=== PATIENT | male | born 1965 | race Caucasian/White ===

== ENCOUNTER → 2017-03-13 | Outpatient (CLI) | payer BC ==
[2017-03-13 10:59] LABS: URINE AMPHETAMINES < 1000 (1000ng/ml); URINE BARBITURATES < 200 (200ng/ml); URINE COCAINE < 300 (300ng/ml)
== END | disposition home or self-care (01) ==
LOC: LAB 10:18
PROVIDERS: Internal Medicine
DX: F11.20 Opioid dependence, uncomplicated (principal)

== ENCOUNTER → 2017-09-25 | Outpatient (CLI) | payer BC ==
[2017-09-25 14:07] LABS: URINE AMPHETAMINES < 1000 (1000ng/ml); URINE BARBITURATES < 200 (200ng/ml); URINE BENZODIAZEPINES < 200 (200ng/ml); URINE CANNABINOIDS (THC) < 50 (50ng/ml); URINE COCAINE < 300 (300ng/ml); URINE METHADONE < 300 (300ng/ml); URINE OPIATES < 300 (300ng/ml)
[2017-09-25 14:09] LABS: URINE PHENCYCLIDINE < 25 (25ng/ml)
== END | disposition home or self-care (01) ==
LOC: LAB 13:28
PROVIDERS: Internal Medicine
DX: F11.20 Opioid dependence, uncomplicated (principal)

== ENCOUNTER 2017-10-27 13:16 | Emergency (ER) | payer BC ==
[~2017-10-27] VITALS: Ht 175.2 cm; Wt 97.5 kg
[2017-10-27] MEDS ORDERED: MULTIVITAMINS1 EAC5 PO (13:32)
[2017-10-27] MEDS ORDERED: OMNICEF300 MG PO (14:58)
[2017-10-27] MEDS ORDERED: NAPROSYN500 MG PO (15:10)
== END 2017-10-27 15:00 | disposition home or self-care (01) ==
LOC: ED 13:16
DX: H65.91 Unspecified nonsuppurative otitis media, right ear (principal); K02.9 Dental caries, unspecified; J02.9 Acute pharyngitis, unspecified; F17.200 Nicotine dependence, unspecified, uncomplicated; Z88.2 Allergy status to sulfonamides; Z79.899 Other long term (current) drug therapy

== ENCOUNTER → 2018-07-04 | Outpatient (CLI) | payer BC ==
[~2018-07-04] MED LIST: MULTIVITAMINS1 EAC5 PO; NAPROSYN500 MG PO; OMNICEF300 MG PO
[2018-07-04 14:00] LABS: URINE AMPHETAMINES < 1000 (1000ng/ml); URINE BARBITURATES < 200 (200ng/ml); URINE BENZODIAZEPINES < 200 (200ng/ml); URINE CANNABINOIDS (THC) < 50 (50ng/ml); URINE COCAINE < 300 (300ng/ml); URINE METHADONE < 300 (300ng/ml); URINE OPIATES < 300 (300ng/ml)
[2018-07-04 14:07] LABS: URINE PHENCYCLIDINE < 25 (25ng/ml)
== END | disposition home or self-care (01) ==
LOC: LAB 13:32
PROVIDERS: Internal Medicine
DX: F11.20 Opioid dependence, uncomplicated (principal)

== ENCOUNTER → 2019-05-06 | Outpatient (CLI) | payer BC ==
[2019-05-06 18:18] LABS: ALBUMIN 3.7 gm/dl (3.1-4.5); BILIRUBIN, DIRECT 0.1 mg/dL (0.0-0.2); TOTAL PROTEIN 7.6 gm/dL (6.4-8.2)
[2019-05-07 05:09] LABS: HEPATITIS B SURFACE AG Negative (Negative)
== END | disposition home or self-care (01) ==
LOC: LAB 17:07
PROVIDERS: Neurological Surgery
DX: Z11.3 Encounter for screening for infections with a predominantly sexual mode of transmission (principal); Z01.89 Encounter for other specified special examinations; F11.20 Opioid dependence, uncomplicated; Z20.828 Contact with and (suspected) exposure to other viral communicable diseases; Z20.6 Contact with and (suspected) exposure to human immunodeficiency virus [HIV]; Z79.899 Other long term (current) drug therapy

== ENCOUNTER → 2022-11-25 | Outpatient (CLI) | payer BC | END | disposition home or self-care (01) | LOC: LAB 15:14 | PROVIDERS: ATTEND Podiatrist | DX: M25.675 Stiffness of left foot, not elsewhere classified (principal); M25.674 Stiffness of right foot, not elsewhere classified; M25.50 Pain in unspecified joint ==